=== PATIENT | male | born 1950 | race Caucasian/White ===

== ENCOUNTER → 2018-06-21 | Outpatient (REF) | payer MEDICARE ==
[~2018-06-21] MED LIST: AMOXICILLIN500 MG PO; DOXYCYCL HYC100 MG OR; PHENERGAN12.5 MG/TA OR
== END | disposition home or self-care (01) ==
LOC: DI 12:40
PROVIDERS: ATTEND Internal Medicine
DX: R09.02 Hypoxemia (principal)